=== PATIENT | male | born 1995 | race American Indian/Alaskan Native ===

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

== ENCOUNTER 2019-05-01 07:23 | Emergency (ER) | payer SELFPAY ==
[2019-05-01 07:56] VITALS: BP 126/81
[2019-05-01] MEDS ORDERED: FUL-GLO OP ONE ×2 (08:59→09:05)
[2019-05-01] MEDS ORDERED: TETRACAINE 0.5% OU ONE (08:59)
[2019-05-01] MEDS ORDERED: BSS OU ONE (08:59)
[2019-05-01] MEDS ORDERED: BSS ONE (09:04)
[2019-05-01] MEDS ORDERED: TETRACAINE 0.5% ONE (09:05)
--- NOTE | 2019-05-01 09:09 | Emergency Department Report ---
ED Eye Problem HPI - General Chief complaint: Eye Problems Stated complaint: (L) EYE PINK/PAIN Time Seen by Provider: 05/01/19 08:55 Source: patient Mode of arrival: Ambulatory Limitations: No Limitations - History of Present Illness Initial comments: 23-year-old -[place] male presents to the emergency room for left thigh pain. He felt that he has any irritation to his eye started one week ago. Patient does admit to photosensitivity. He denies wearing contacts denies any itchiness. Patient has no past medical history has no known drug allergies. MD chief complaint: eye pain, eye redness Onset/Timin -: week(s) Location: left eye If Injury: none Eye Symptoms: redness, pain, foreign body sensation, photophobia Severity: moderate If Pain, Quality: sharp, throbbing Consistency: constant Treatments Prior to Arrival: none - Related Data Patient Tetanus UTD: Yes Previous Rx's Medication Instructions Recorded Last Taken Type Hydrocodone Bit/Acetaminophen 1 each PO Q4-6H #20 tablet 09/07/13 Unknown Rx [Lortab 5-500 Tablet] Penicillin Vk [Veetids TAB] 2 tab PO BID #40 tablet 09/07/13 Unknown Rx Fexofenadine/Pseudoephedrine 1 each PO QDAY #20 tab.er.24h 12/09/15 Unknown Rx [Pricila-D 24 Hour Tablet] Ondansetron [Zofran Odt] 4 mg PO TID #6 tab.rapdis 12/09/15 Unknown Rx guaiFENesin [Robitussin] 200 mg PO Q4HR #200 ml 12/09/15 Unknown Rx Amoxicillin [Trimox CAP] 500 mg PO BID #20 capsule 02/14/16 Unknown Rx Ibuprofen [Motrin 800 MG tab] 800 mg PO Q8HR PRN #30 tablet 02/14/16 Unknown Rx ALBUTEROL Inhaler (OR & NICU) 2 puff IH QID PRN #1 inhalation 12/30/16 Unknown Rx [ProAir HFA Inhaler] Azithromycin [Zithromax Z-PAZ] 250 mg PO QDAY #6 tablet 12/30/16 Unknown Rx Promethazine /Codeine 5 ml PO Q6H PRN #10 udc 12/30/16 Unknown Rx [Phenergan/Codeine 6.25-10 mg/5Ml] Erythromycin [Erythromycin Ophth 1 applic OP QID 10 Days #1 tube 05/01/19 Unknown Rx Oint] Ibuprofen [Motrin 800 MG tab] 800 mg PO TID PRN #30 tablet 05/01/19 Unknown Rx Allergies Allergy/AdvReac Type Severity Reaction Status Date / Time No Known Allergies Allergy Verified 05/01/19 07:25 ED Review of Systems ROS: Stated complaint: (L) EYE PINK/PAIN Other details as noted in HPI Comment: All other systems reviewed and negative Eyes: eye pain ED Past Medical Hx - Past Medical History Previous Medical History?: No Hx CVA: No - Surgical History Past Surgical History?: No - Social History Smoking Status: Never Smoker Substance Use Type: None - Medications Home Medications: Home Medications Medication Instructions Recorded Confirmed Last Taken Type Hydrocodone Bit/Acetaminophen 1 each PO Q4-6H #20 tablet 09/07/13 Unknown Rx [Lortab 5-500 Tablet] Penicillin Vk [Veetids TAB] 2 tab PO BID #40 tablet 09/07/13 Unknown Rx Fexofenadine/Pseudoephedrine 1 each PO QDAY #20 tab.er.24h 12/09/15 Unknown Rx [Pricila-D 24 Hour Tablet] Ondansetron [Zofran Odt] 4 mg PO TID #6 tab.rapdis 12/09/15 Unknown Rx guaiFENesin [Robitussin] 200 mg PO Q4HR #200 ml 12/09/15 Unknown Rx Amoxicillin [Trimox CAP] 500 mg PO BID #20 capsule 02/14/16 Unknown Rx Ibuprofen [Motrin 800 MG tab] 800 mg PO Q8HR PRN #30 tablet 02/14/16 Unknown Rx ALBUTEROL Inhaler (OR & NICU) 2 puff IH QID PRN #1 inhalation 12/30/16 Unknown Rx [ProAir HFA Inhaler] Azithromycin [Zithromax Z-PAZ] 250 mg PO QDAY #6 tablet 12/30/16 Unknown Rx Promethazine /Codeine 5 ml PO Q6H PRN #10 udc 12/30/16 Unknown Rx [Phenergan/Codeine 6.25-10 mg/5Ml] Erythromycin [Erythromycin Ophth 1 applic OP QID 10 Days #1 tube 05/01/19 Unknown Rx Oint] Ibuprofen [Motrin 800 MG tab] 800 mg PO TID PRN #30 tablet 05/01/19 Unknown Rx ED Physical Exam - General Limitations: No Limitations General appearance: alert, in no apparent distress - Head Head exam: Present: atraumatic, normocephalic - Eye Eye exam: Present: normal appearance Pupils: Present: other (fluorescein exam shows uptake to the upper cornea) - Expanded Eye Exam Expanded Pupils: Regular, Round: Bilateral Sclera/Conjunctival: Injection: Left ED Course Vital Signs 05/01/19 07:54 Temperature 97.9 F Pulse Rate 55 L Respiratory 18 Rate Blood Pressure 126/81 O2 Sat by Pulse 100 Oximetry ED Medical Decision Making - Medical Decision Making 23-year-old -[place] male presents to emergency room for left eye pain for 1 week. Discussed the patient after doing a floor soon exam that there is any uptake of fluorescein that we will treat him for a corneal abrasion with erythromycin and ibuprofen. Discussed the patient needs to follow-up with an chain saw operator the next 24-48 hours. Information provided to patient for an ophthalmology will be discharge summary. Critical care attestation.: If time is entered above; I have spent that time in minutes in the direct care of this critically ill patient, excluding procedure time. ED Disposition Clinical Impression: Corneal abrasion, left Disposition: DC-01 TO HOME OR SELFCARE Is pt being admited?: No Does the pt Need Aspirin: No Condition: Stable Instructions: Corneal Abrasion (ED) Additional Instructions: Please use I antibiotics as prescribed. Very very important for you to follow- up with an development specialist. I have listed several below for your convenience. See them within 24-48 hours. Prescriptions: Erythromycin [Erythromycin Ophth Oint] 1 applic OP QID 10 Days #1 tube Ibuprofen [Motrin 800 MG tab] 800 mg PO TID PRN #30 tablet PRN Reason: Pain Referrals: AUNG MCGILL MD [Staff Physician] - 3-5 Days [facility] [Provider Group] - 3-[address] [facility] [Provider Group] - 3-5 Days Forms: Work/School Release Form(ED)
== END 2019-05-01 09:37 | disposition home or self-care (01) ==
LOC: ED 07:23
DX: S05.02XA Injury of conjunctiva and corneal abrasion without foreign body, left eye, initial encounter (principal); X58.XXXA Exposure to other specified factors, initial encounter; Y93.89 Activity, other specified; Y92.89 Other specified places as the place of occurrence of the external cause; Y99.8 Other external cause status
CPT/HCPCS: 99282

== ENCOUNTER 2019-07-31 19:27 | Emergency (ER) | payer SELFPAY ==
--- NOTE | 2019-07-31 19:53 | Emergency Department Report ---
Blank Doc - Documentation Documentation: This is a 24-year-old male that presents with lower abdominal pain and dysuria. This initial assessment/diagnostic orders/clinical plan/treatment(s) is/are subject to change based on patient's health status, clinical progression and re- assessment by fellow clinical providers in the ED. Further treatment and workup at subsequent clinical providers discretion. Patient/guardians urged not to elope from the ED as their condition may be serious if not clinically assessed and managed. Initial orders include: 1- Patient sent to [facility] for further evaluation and treatment 2- UA 3- labs
[2019-07-31 20:33] LABS: Basophils % (Auto) 0.7 % (0.0-1.8); Eosinophils # (Auto) 0.1 K/mm3 (0.0-0.4); Eosinophils % (Auto) 2.3 % (0.0-4.3); Hematocrit 40.1 % (35.5-45.6); Hemoglobin 13.6 gm/dl (11.8-15.2); Lymphocytes # (Auto) 2.6 K/mm3 (1.2-5.4); Mean Corpuscular HGB Conc 34 % (32-34); Mean Corpuscular Volume 83 fl (84-94); Monocytes # (Auto) 0.5 K/mm3 (0.0-0.8); Monocytes % (Auto) 8.2 % (0.0-7.3); Platelet Count 232 K/mm3 (140-440); Red Blood Count 4.82 M/mm3 (3.65-5.03); Red Cell Distribution Width 14.3 % (13.2-15.2)
[2019-07-31 20:43] LABS: Bacteria,Urine 1+ /HPF (Negative); Bilirubin,Urine NEG (Negative); Blood,Urine SM (Negative); Color,Urine Amber (Yellow); Protein,Urine <15 mg/dL mg/dL (Negative)
[2019-07-31 20:44] LABS: WBC,Urine > 182.0 /HPF (0.0-6.0)
[2019-07-31 21:05] LABS: Alanine Aminotransferase 22 units/L (7-56); Albumin 4.4 g/dL (3.9-5); BUN/Creatinine Ratio 11; Blood Urea Nitrogen 10 mg/dL (9-20); Calcium 9.4 mg/dL (8.4-10.2); Hemolysis Index 10
[2019-08-01] MEDS ORDERED: XYLOCAINE 1% MPF 5 mL INFILTRATI ONE (00:39)
[2019-08-01] MEDS ORDERED: ROCEPHIN IM ONE (00:39)
[2019-08-01] MEDS ORDERED: ZITHROMAX PO ONE (00:39)
--- NOTE | 2019-08-01 00:45 | Emergency Department Report ---
ED Male HPI - General Chief complaint: Abdominal Pain Stated complaint: POSS UTI Time Seen by Provider: 07/31/19 19:51 Source: patient Mode of arrival: Ambulatory Limitations: No Limitations - History of Present Illness Initial comments: Patient is a 24-year-old male who presents with dysuria frequency urgency and discharge penile discharges white thick malodorous symptoms exacerbated voiding symptoms are relieved by nothing patient advises partner is positive for gonorrhea patient denies nausea vomiting there is mild abdominal pain and dyspareunia. no open sores or lesions MD Complaint: penile discharge, dysuria Onset/Timin -: days(s) Location: penis Radiation: none Severity: moderate Severity scale (0 -10): 4 Quality: aching, burning Consistency: intermittent Improves with: none Worsens with: urination discharge, dysuria. denies: swelling, mass, rash, urinary retention, blood in urine, incontinence - Related Data Sexually active: Yes Previous Rx's Medication Instructions Recorded Last Taken Type Hydrocodone Bit/Acetaminophen 1 each PO Q4-6H #20 tablet 09/07/13 Unknown Rx [Lortab 5-500 Tablet] Penicillin Vk [Veetids TAB] 2 tab PO BID #40 tablet 09/07/13 Unknown Rx Fexofenadine/Pseudoephedrine 1 each PO QDAY #20 tab.er.24h 12/09/15 Unknown Rx [Pricila-D 24 Hour Tablet] Ondansetron [Zofran Odt] 4 mg PO TID #6 tab.rapdis 12/09/15 Unknown Rx guaiFENesin [Robitussin] 200 mg PO Q4HR #200 ml 12/09/15 Unknown Rx Amoxicillin [Trimox CAP] 500 mg PO BID #20 capsule 02/14/16 Unknown Rx Ibuprofen [Motrin 800 MG tab] 800 mg PO Q8HR PRN #30 tablet 02/14/16 Unknown Rx ALBUTEROL Inhaler (OR & NICU) 2 puff IH QID PRN #1 inhalation 12/30/16 Unknown Rx [ProAir HFA Inhaler] Azithromycin [Zithromax Z-PAZ] 250 mg PO QDAY #6 tablet 12/30/16 Unknown Rx Promethazine /Codeine 5 ml PO Q6H PRN #10 udc 12/30/16 Unknown Rx [Phenergan/Codeine 6.25-10 mg/5Ml] Erythromycin [Erythromycin Ophth 1 applic OP QID 10 Days #1 tube 05/01/19 Unknown Rx Oint] Ibuprofen [Motrin 800 MG tab] 800 mg PO TID PRN #30 tablet 05/01/19 Unknown Rx Doxycycline Monohydrate 100 mg PO BID 10 Days #20 tablet 08/01/19 Unknown Rx Allergies Allergy/AdvReac Type Severity Reaction Status Date / Time No Known Allergies Allergy Verified 05/01/19 07:25 ED Review of Systems ROS: Stated complaint: POSS UTI Other details as noted in HPI Constitutional: denies: chills, fever Eyes: denies: eye pain, eye discharge, vision change ENT: denies: ear pain, throat pain Respiratory: denies: cough, shortness of breath, wheezing Cardiovascular: as per HPI Endocrine: no symptoms reported Gastrointestinal: denies: abdominal pain, nausea, vomiting, diarrhea, constipation, hematemesis, melena, hematochezia Genitourinary: urgency, dysuria, frequency, discharge. denies: testicular mass Musculoskeletal: denies: back pain, joint swelling, arthralgia Skin: denies: rash, lesions, pruritus Neurological: denies: headache, weakness, paresthesias Psychiatric: denies: anxiety, depression Hematological/Lymphatic: denies: easy bleeding, easy bruising ED Past Medical Hx - Past Medical History Previous Medical History?: No Hx CVA: No - Surgical History Past Surgical History?: No - Social History Smoking Status: Never Smoker Substance Use Type: None - Medications Home Medications: Home Medications Medication Instructions Recorded Confirmed Last Taken Type Hydrocodone Bit/Acetaminophen 1 each PO Q4-6H #20 tablet 09/07/13 Unknown Rx [Lortab 5-500 Tablet] Penicillin Vk [Veetids TAB] 2 tab PO BID #40 tablet 09/07/13 Unknown Rx Fexofenadine/Pseudoephedrine 1 each PO QDAY #20 tab.er.24h 12/09/15 Unknown Rx [Pricila-D 24 Hour Tablet] Ondansetron [Zofran Odt] 4 mg PO TID #6 tab.rapdis 12/09/15 Unknown Rx guaiFENesin [Robitussin] 200 mg PO Q4HR #200 ml 12/09/15 Unknown Rx Amoxicillin [Trimox CAP] 500 mg PO BID #20 capsule 02/14/16 Unknown Rx Ibuprofen [Motrin 800 MG tab] 800 mg PO Q8HR PRN #30 tablet 02/14/16 Unknown Rx ALBUTEROL Inhaler (OR & NICU) 2 puff IH QID PRN #1 inhalation 12/30/16 Unknown Rx [ProAir HFA Inhaler] Azithromycin [Zithromax Z-PAZ] 250 mg PO QDAY #6 tablet 12/30/16 Unknown Rx Promethazine /Codeine 5 ml PO Q6H PRN #10 udc 12/30/16 Unknown Rx [Phenergan/Codeine 6.25-10 mg/5Ml] Erythromycin [Erythromycin Ophth 1 applic OP QID 10 Days #1 tube 05/01/19 Unknown Rx Oint] Ibuprofen [Motrin 800 MG tab] 800 mg PO TID PRN #30 tablet 05/01/19 Unknown Rx Doxycycline Monohydrate 100 mg PO BID 10 Days #20 tablet 08/01/19 Unknown Rx ED Physical Exam - General Limitations: No Limitations General appearance: alert, in no apparent distress - Head Head exam: Present: atraumatic, normocephalic - Eye Eye exam: Present: normal appearance, PERRL, EOMI Pupils: Present: normal accommodation - ENT ENT exam: Present: normal orophraynx, mucous membranes moist, TM's normal bilaterally, normal external ear exam - Neck Neck exam: Present: normal inspection, tenderness, full ROM. Absent: lymphadenopathy, thyromegaly - Respiratory Respiratory exam: Present: normal lung sounds bilaterally, wheezes, chest wall tenderness. Absent: stridor - Cardiovascular Cardiovascular Exam: Present: regular rate, normal rhythm. Absent: systolic murmur, diastolic murmur, rubs, gallop - GI/Abdominal GI/Abdominal exam: Present: soft, normal bowel sounds. Absent: distended, t enderness, guarding, rebound, rigid, bruit, hernia - Rectal Rectal exam: Present: deferred - exam: Present: normal inspection, urethral discharge. Absent: testicular tenderness, scrotal swelling External exam: Present: normal external exam - Extremities Exam Extremities exam: Present: normal inspection, full ROM, normal capillary refill. Absent: tenderness, pedal edema, joint swelling, calf tenderness - Back Exam Back exam: Present: normal inspection, full ROM, CVA tenderness (L). Absent: tenderness, CVA tenderness (R), muscle spasm, paraspinal tenderness, vertebral tenderness, rash noted - Neurological Exam Neurological exam: Present: alert, oriented X3 - Psychiatric Psychiatric exam: Present: normal affect, normal mood - Skin Skin exam: Present: warm, dry, intact, normal color. Absent: rash ED Course Vital Signs 07/31/19 19:52 Temperature 98.6 F Pulse Rate 95 H Respiratory 18 Rate Blood Pressure 122/82 O2 Sat by Pulse 99 Oximetry ED Medical Decision Making - Lab Data Result diagrams: 07/31/19 20:16 07/31/19 20:16 Labs 07/31/19 07/31/19 07/31/19 03:54 20:16 20:16 WBC 6.1 RBC 4.82 Hgb 13.6 Hct 40.1 MCV 83 L MCH 28 MCHC 34 RDW 14.3 Plt Count 232 Lymph % (Auto) 42.0 H Coffee % (Auto) 8.2 H Eos % (Auto) 2.3 Baso % (Auto) 0.7 Lymph # 2.6 Coffee # 0.5 Eos # 0.1 Baso # 0.0 Seg Neutrophils % 46.8 Seg Neutrophils # 2.9 Sodium 137 Potassium 4.3 Chloride 100.5 Carbon Dioxide 26 Anion Gap 15 BUN 10 Creatinine 0.9 Estimated GFR > 60 BUN/Creatinine Ratio 11 Glucose 87 Calcium 9.4 Total Bilirubin 0.60 AST 18 ALT 22 Alkaline Phosphatase 67 Total Protein 7.5 Albumin 4.4 Albumin/Globulin Ratio 1.4 Urine Color Ольга Urine Turbidity Clear Urine pH 6.0 Ur Specific [place] 1.008 Urine Protein <15 mg/dl Urine Glucose (UA) Neg Urine Ketones Neg Urine Blood Sm Urine Nitrite Pos Urine Bilirubin Neg Urine Urobilinogen 4.0 Ur Leukocyte Esterase Sm Urine WBC (Auto) > 182.0 H Urine RBC (Auto) 1.0 U Epithel Cells (Auto) < 1.0 Urine Bacteria (Auto) 1+ Urine WBC Clumps 3+ - Medical Decision Making This and his CT with UTI , rocephine, azithromycin given in ed , dc to home with doxycycline pt will follow up with health department for hiv and hsv testing. pt verbalized agreement and understanding of discharge plan. Critical care attestation.: If time is entered above; I have spent that time in minutes in the direct care of this critically ill patient, excluding procedure time. ED Disposition Clinical Impression: STD (male), UTI (urinary tract infection) with pyuria Disposition: DC-01 TO HOME OR SELFCARE Is pt being admited?: No Does the pt Need Aspirin: No Condition: Stable Instructions: Sexually Transmitted Diseases (ED), Urinary Tract Infection in Men (ED) Prescriptions: Doxycycline Monohydrate 100 mg PO BID 10 Days #20 tablet Referrals: PRIMARY CARE, [Primary Care Provider] - 3-5 Days [facility] [Outside] - 3-5 Days Forms: Work/School Release Form(ED) Time of Disposition: 00:57
[2019-08-01 01:32] VITALS: BP 118/78
== END 2019-08-01 01:31 | disposition home or self-care (01) ==
LOC: ED 19:27
DX: N39.0 Urinary tract infection, site not specified (principal); A64 Unspecified sexually transmitted disease
CPT/HCPCS: 36415; 80053; 81001; 85025; 96372; 99283; J0696